=== PATIENT | male | born 1995 | race Caucasian/White ===

== ENCOUNTER 2016-07-07 20:15 | Emergency (ER) | payer MEDICAID ==
[2016-07-08 01:54] VITALS: BP 123/73
== END 2016-07-08 01:54 | disposition home or self-care (01) ==
LOC: ED 20:15
DX: M94.0 Chondrocostal junction syndrome [Tietze] (principal); S39.012A Strain of muscle, fascia and tendon of lower back, initial encounter; X58.XXXA Exposure to other specified factors, initial encounter; Y93.89 Activity, other specified; Y99.8 Other external cause status; Y92.89 Other specified places as the place of occurrence of the external cause

== ENCOUNTER 2017-01-28 21:52 | Emergency (ER) | payer SELFPAY ==
[2017-01-28 22:02] VITALS: BP 152/109
== END 2017-01-29 02:13 | disposition left against medical advice (07) ==
LOC: ED 21:52
DX: M54.9 Dorsalgia, unspecified (principal); Z53.21 Procedure and treatment not carried out due to patient leaving prior to being seen by health care provider

== ENCOUNTER 2018-03-30 05:04 | Emergency (ER) | payer SELFPAY ==
[~2018-03-30] VITALS: Ht 170.2 cm; Wt 102.5 kg
[2018-03-30 06:26] VITALS: BP 143/80
== END 2018-03-30 06:26 | disposition home or self-care (01) ==
LOC: ED 05:04
DX: L03.116 Cellulitis of left lower limb (principal)
CPT/HCPCS: 90715